=== PATIENT | male | born 1960 | race Two or more races ===

== ENCOUNTER 2017-06-07 22:58 | Emergency (ER) | payer OTHER, BC ==
--- NOTE | 2017-06-07 23:05 | PDOC ---
History of Present Illness - General Stated Complaint: LACERATION Time Seen by Provider: 06/07/17 23:00 History Source: Patient Exam Limitations: No Limitations - History of Present Illness Initial Comments: 06/07/17 23:04 56-year-old male who is right hand dominant presents to the emergency department complaining of a laceration to his left thumb after he closed on a door. Patient denies any extremity numbness or tingling sensation. Patient states bleeding controlled with direct pressure prior to his arrival to the emergency department. Patient denies any other injuries or complaints. Last tetanus: One year ago. Timing/Duration: momentarily Past History - Past Medical History Allergies/Adverse Reactions: Allergies Allergy/AdvReac Type Severity Reaction Status Date / Time No Known Allergies Allergy Unverified 10/12/12 11:45 Home Medications: Ambulatory Orders Cephalexin Monohydrate [Keflex -] 500 mg PO BID #10 capsule 06/08/17 Review of Systems - Review of Systems Comments:: 06/07/17 23:01 Left thimb +pain denies numbness/tingling sensation CONSTITUTIONAL: Absent: fever, chills, diaphoresis, generalized weakness, malaise, MUSCULOSKELETAL: Absent: myalgia, arthralgia, joint swelling SKIN: Absent: rash, itching, pallor HEMATOLOGIC/IMMUNOLOGIC: Absent: easy bleeding, easy bruising, lymphadenopathy, frequent infections *Physical Exam - Physical Exam Comments: 06/07/17 23:02 Left thumb F.R.O.M> ED Treatment Course - RADIOLOGY Radiograph Interpretation: 06/08/17 00:56 Xray left thumb tuft fx *DC/Admit/Observation/Transfer Diagnosis at time of Disposition: Closed fracture of tuft of distal phalanx of finger Nail avulsion, finger Qualifiers: Encounter type: initial encounter Qualified Code(s): S61.309A - Unspecified open wound of unspecified finger with damage to nail, initial encounter - Discharge Dispostion Disposition: HOME Condition at time of disposition: Stable Admit: No - Prescriptions Prescriptions: Cephalexin Monohydrate [Keflex -] 500 mg PO BID #10 capsule - Referrals Referrals: Graeme De Anda MD [Staff Physician] - - Patient Instructions Printed Discharge Instructions: DI for Laceration Repair -- Simple Additional Instructions: Keep the incision clean and dry for 24 hours. After 24 hours, you may allow the soap and water to rinse off your incision. Avoid direct pressure of the water to the incision. Cover the incision loosely with a bandaid. Take tylenol/motrin as needed for pain. Follow up with your physician or the ER in 48 hours for a wound check. Return to the ER if you notice red streaks, increase redness/swelling/severe pain to the incision. Keflex 500mg take 1 tablet by mouth twice a day A piece of sterile foil was used to replace your nail to help a new nail grows. Wound check in 2 days then 1 week then 2 weeks - Post Discharge Activity
[2017-06-07 23:26] VITALS: BP 133/86; PULSE 68; TEMP 98; BMI 27.4
[2017-06-08] MEDS ORDERED: CEPHALEXIN MONOHYDRATE 500 MG CAPSULE (UD) PO ONE (00:50)
[2017-06-08] MEDS ORDERED: CEPHALEXIN MONOHYDRATE 500 MG CAPSULE (UD) ONE (00:53)
== END 2017-06-08 00:58 | disposition home or self-care (01) ==
LOC: JERFT 22:58
DX: S62.525A Nondisplaced fracture of distal phalanx of left thumb, initial encounter for closed fracture (principal); S61.112A Laceration without foreign body of left thumb with damage to nail, initial encounter; W23.0XXA Caught, crushed, jammed, or pinched between moving objects, initial encounter; Y93.89 Activity, other specified; Y92.69 Other specified industrial and construction area as the place of occurrence of the external cause; Y99.0 Civilian activity done for income or pay
CPT/HCPCS: 73140-TC-LT; 99281-25

== ENCOUNTER 2017-06-09 12:53 | Emergency (ER) | payer OTHER, BC ==
[2017-06-09 12:58] VITALS: BP 133/85; PULSE 67; TEMP 97.8; BMI 26.5
--- NOTE | 2017-06-09 14:02 | PDOC ---
Suture Removal/Wound Check HPI - History of Present Illness Chief Complaint: Revisit,Wound Recheck Stated Complaint: WOUND CHECK Time Seen by Provider: 06/09/17 13:32 History Source: Yes: Patient Exam Limitations: Yes: No Limitations Treated at: [facility] ED - Previous ED Treatment Type of procedure performed on last visit: Yes: Laceration Repair (nail avulsion ) Past History - Travel Traveled outside of the country in the last 30 days: No Close contact w/someone who was outside of country & ill: No - Past Medical History Allergies/Adverse Reactions: Allergies Allergy/AdvReac Type Severity Reaction Status Date / Time No Known Allergies Allergy Unverified 06/09/17 12:58 Home Medications: Ambulatory Orders Cephalexin Monohydrate [Keflex -] 500 mg PO BID #10 capsule 06/08/17 COPD: No Other medical history: NONE - Suicide/Smoking/Psychosocial Hx Smoking History: Never smoked Hx Alcohol Use: No Drug/Substance Use Hx: No Suture Removal/Wound Check PE - Physical Exam Laceration/Wound Check Symptoms: reports: Improved. denies: Fever, Chills, Bleeding, Numbness Location of Laceration/Wound: left: Finger (nail avulsion, no pus/drainage or redness. Foil in place) *Review of Systems - Review of Systems Constitutional: No: Chills, Fever, Weakness Integumentary: Yes: Other (healing nail avulsion). No: Bruising, Erythema, Pruritus Neurological: No: Numbness, Tingling, Weakness All Other Systems: Reviewed and Negative Medical Decision Making - Medical Decision Making 06/09/17 14:35 Pt. presents for wound check. There is no signs of infection. Foil is in place. Will d/c home with instructions to follow up with Dr. Paul and Dr. Key. Pt. to continue with his antibiotics. *DC/Admit/Observation/Transfer Diagnosis at time of Disposition: Visit for wound check Nail avulsion, finger Qualifiers: Encounter type: initial encounter Qualified Code(s): S61.309A - Unspecified open wound of unspecified finger with damage to nail, initial encounter - Discharge Dispostion Disposition: HOME Condition at time of disposition: Good Admit: No - Referrals Referrals: Juanito Key MD [Staff Physician] - Casa Paul MD [Staff Physician] - - Patient Instructions Printed Discharge Instructions: DI for Nail Avulsion Injury Additional Instructions: Your wound is healing. The dressing was changed today. Please follow up with Dr. Paul (ortho) and Dr. Key (plastics) so they can evaluate your nail. Return on Wednesday to have the wound checked again. You may change the dressing once a day. Please use a non-stick dressing (telfa) over the area to prevent re-injury. You can find this at the pharmacy. Continue your antibiotics as prescribed. Return to the ED if you have fevers, increased pain, numbness, tingling, drainage from the finger, signs of infection or any other changes in your symptoms. Tu herida se est curando. El vestidor fue cambiado hoy. Por favor, katie un seguimiento con el Dr. Paul (orto) y el Dr. Key (plsticos) para que puedan evaluar jaquez ua. Regresa el lunes para que se revise la herida nuevamente. Puede cambiar el vendaje skyler vez al da. Utilice un vendaje antiadherente (telfa) sobre el yuriy para evitar nuevas lesiones. Puede encontrar esto en la farmacia. Contine con bushra antibiticos segn lo recetado. Regrese al departamento de emergencias si tiene fiebre, aumento del dolor, entumecimiento, hormigueo, drenaje del dedo, signos de infeccin o cualquier otro cambio en bushra sntomas. Print Language: GHANAIAN - Post Discharge Activity Forms/Work/School Notes: Back to Work
== END 2017-06-09 14:41 | disposition home or self-care (01) ==
LOC: JERFT 12:53
DX: Z48.01 Encounter for change or removal of surgical wound dressing (principal)
CPT/HCPCS: 99281-25